=== PATIENT | female | born 1955 | race Native Hawaiian/Other Pacific Islander ===

== ENCOUNTER 2021-06-02 14:16 | Inpatient (IN) | payer OTHER ==
[~2021-06-02] VITALS: Ht 152.4 cm; Wt 61.7 kg
[2021-06-02 16:12] VITALS: BP 132/54; TEMP 98.3; Ht 152.4 cm; Wt 61.7 kg
[2021-06-02 20:13] VITALS: BP 99/46; TEMP 97.8
[2021-06-03 08:00] VITALS: BP 143/52; TEMP 99.3
[2021-06-03] MEDS ORDERED: FLUOXETINE20 MG PO (12:28)
[2021-06-03] MEDS ORDERED: FLUOXETINE40 MG PO (12:29)
[2021-06-03] MEDS ORDERED: FLUTICASONE PRO INH (12:30)
[2021-06-03] MEDS ORDERED: VALSARTAN PO (12:33)
[2021-06-03] MEDS ORDERED: TYLENOL325 MG PO (12:34)
[2021-06-03] MEDS ORDERED: BUDESONIDE0.5 MG/2 M INH (12:36)
[2021-06-03] MEDS ORDERED: HYDR25TA60 PO (12:37)
[2021-06-03] MEDS ORDERED: FURO40TA93 PO (12:37)
[2021-06-03] MEDS ORDERED: HUMALOG KW100 UNIT/M SC (12:39)
[2021-06-03] MEDS ORDERED: ALBUSOL INH (12:47)
[2021-06-03] MEDS ORDERED: MAGNESIUM200 MG PO (12:48)
[2021-06-03] MEDS ORDERED: EQ NICOTIN21 MG/241 TOP (12:49)
[2021-06-03] MEDS ORDERED: NYSTATIN100000 UNI PO (12:50)
[2021-06-03] MEDS ORDERED: ONDA2INJ2 IV (12:51)
[2021-06-03] MEDS ORDERED: OXYC5TAB24 PO (12:52)
[2021-06-03] MEDS ORDERED: TAMSULOSIN HYD0.4 MG PO (12:53)
[2021-06-03 20:27] VITALS: BP 109/45; TEMP 98.9
[2021-06-04 08:00] VITALS: BP 117/56; TEMP 98.8
[2021-06-04 20:26] VITALS: BP 121/47; TEMP 99.7
[2021-06-05 20:00] VITALS: BP 121/52; TEMP 100
[2021-06-05 22:30] VITALS: TEMP 98.8
[2021-06-06 20:00] VITALS: BP 116/47; TEMP 98.5
[2021-06-07 08:00] VITALS: BP 121/40; TEMP 98.4
[2021-06-07 20:37] VITALS: BP 109/41; TEMP 98.5
[2021-06-08 08:00] VITALS: BP 122/37; TEMP 98
[2021-06-08 20:27] VITALS: BP 113/59; TEMP 98.4
[2021-06-11 08:00] VITALS: BP 94/60; TEMP 98.1
[2021-06-11 20:00] VITALS: BP 93/40; TEMP 99.1
[2021-06-12 08:00] VITALS: BP 102/36; TEMP 98.4
[2021-06-12 20:38] VITALS: BP 90/42; TEMP 98.8
[2021-06-13 08:00] VITALS: BP 110/47; TEMP 98.2
[2021-06-13 20:46] VITALS: BP 116/55; TEMP 100.1
[2021-06-14 08:46] VITALS: BP 112/63; TEMP 97.9
[2021-06-14 12:46] VITALS: BP 110/48; TEMP 98.8
[2021-06-14 16:46] VITALS: BP 115/62; TEMP 98.4
[2021-06-14 20:00] VITALS: BP 105/47; TEMP 98.8
[2021-06-15 08:46] VITALS: BP 105/44; TEMP 97.9
[2021-06-15 16:46] VITALS: BP 106/59; TEMP 98.6
[2021-06-15 20:00] VITALS: BP 126/66; TEMP 98.2
[2021-06-16 08:00] VITALS: BP 130/59; TEMP 98.6
[2021-06-16 20:03] VITALS: BP 100/55; TEMP 98.3
[2021-06-17 08:00] VITALS: BP 103/52; TEMP 97.7
[2021-06-17 20:45] VITALS: BP 105/55; TEMP 99.1
[2021-06-18 09:15] VITALS: BP 120/53; TEMP 98.2
[2021-06-18 20:38] VITALS: BP 89/46; TEMP 99
[2021-06-19 20:00] VITALS: BP 102/50; TEMP 98.6
[2021-06-20 05:51] LABS: PLATELET COUNT 258 K/uL (152-353)
[2021-06-20 06:00] LABS: POTASSIUM 3.9 mmol/L (3.6-5.2)
[2021-06-20 20:00] VITALS: BP 101/65; TEMP 98.8
[2021-06-21 08:00] VITALS: BP 112/45; TEMP 97.9
[2021-06-21 20:20] VITALS: BP 124/55; TEMP 99.5
[2021-06-22 08:35] VITALS: BP 128/60; TEMP 98.2
[2021-06-22 20:19] VITALS: BP 125/47; TEMP 98
[2021-06-23] MEDS ORDERED: FURO40TA93 PO (09:48)
[2021-06-23 20:00] VITALS: BP 143/56; TEMP 99
[2021-06-24 08:00] VITALS: BP 135/50; TEMP 98.3
[2021-06-24 20:00] VITALS: BP 97/52; TEMP 99
[2021-06-25 08:00] VITALS: BP 120/51; TEMP 98.3
[2021-06-25 20:00] VITALS: BP 152/84; TEMP 99.3
[2021-06-26 20:10] VITALS: BP 153/63; TEMP 99
[2021-06-27 08:00] VITALS: BP 144/61; TEMP 98.1
[2021-06-27 20:07] VITALS: BP 154/46; TEMP 98.9
[2021-06-28 20:00] VITALS: BP 157/67; TEMP 98.8
[2021-06-29 07:25] VITALS: BP 155/62; TEMP 98.3
== END 2021-06-29 10:51 | disposition home health service (06) | DRG 73 ==
LOC: MED/SURG 14:16
PROVIDERS: Internal Medicine; ADMIT Internal Medicine; ATTEND Internal Medicine
DX: G62.81 Critical illness polyneuropathy (principal); R53.81 Other malaise; M75.121 Complete rotator cuff tear or rupture of right shoulder, not specified as traumatic; J44.9 Chronic obstructive pulmonary disease, unspecified; J45.50 Severe persistent asthma, uncomplicated; R13.12 Dysphagia, oropharyngeal phase; R48.8 Other symbolic dysfunctions; M62.81 Muscle weakness (generalized); R26.2 Difficulty in walking, not elsewhere classified; Z74.1 Need for assistance with personal care; M25.511 Pain in right shoulder; S46.111D Strain of muscle, fascia and tendon of long head of biceps, right arm, subsequent encounter; R33.9 Retention of urine, unspecified; D64.9 Anemia, unspecified; M25.811 Other specified joint disorders, right shoulder; F32.9 Major depressive disorder, single episode, unspecified; I10 Essential (primary) hypertension; E78.5 Hyperlipidemia, unspecified; J95.821 Acute postprocedural respiratory failure; J95.811 Postprocedural pneumothorax; J95.851 Ventilator associated pneumonia
CPT/HCPCS: 36415; 80048; 85027; 87081; 94640; 94664; 94760; G0283-GP